=== PATIENT | female | born 1995 | race Caucasian/White ===

== ENCOUNTER 2017-09-07 09:51 | Emergency (ER) | payer MEDICAID, OTHER ==
[~2017-09-07] VITALS: Ht 165.1 cm; Wt 113.0 kg
[2017-09-07 09:54] VITALS: Ht 165.1 cm; Wt 113.0 kg
--- NOTE | 2017-09-07 10:18 | ERD ---
ER Documentation Chief Complaint Chief Complaint Complains of vomiting x 3 days HPI 22-year-old female, previously healthy, presents to the emergency department complaining of 3 days with a spinning sensation, associated with nausea and vomiting approximately 3 episodes per day, spinning sensation is worsened by sudden changes in position. Denies headaches, weakness, numbness, tingling. No ear pain, no history of ear problems. Recent upper respiratory infection 2 weeks ago. No treatment attempted at this time, no history of previous episodes. ROS A 12-point review of systems was performed and negative other than presented in the history of present illness. SYSTEMIC symptoms: no fever, chills, no night sweats, no weight loss EYE symptoms: No blurred vision, no eye discharge OTOLARYNGEAL symptoms: No hearing loss. No ear pain, no sore throat CARDIOVASCULAR symptoms: No chest pain or discomfort, no palpitations. PULMONARY symptoms: No dyspnea, no cough, no wheezing. GASTROINTESTINAL symptoms: No abdominal pain, no nausea, no vomiting, no diarrhea MUSCULOSKELETAL symptoms: No arthralgias, no muscle aches. NEUROLOGY symptoms: No confusion, no syncope, no numbness or tingling. SKIN: No rashes Medications Home Meds Active Scripts Lorazepam* (Ativan*) 0.5 Mg Tablet, 0.5 MG PO Q8 for dizziness, #10 TAB Prov:EDEN PICHARDO MD 09/07/17 Meclizine Hcl* (Antivert*) 12.5 Mg Tab, 12.5 MG PO Q6H Y for DIZZINESS, #20 TAB Prov:EDEN PICHARDO MD 09/07/17 Allergies Allergies: Coded Allergies: No Known Allergy (Unverified , 09/07/17) Physical Exam Vitals Vital Signs Date Time Temp Pulse Resp B/P Pulse Ox O2 Delivery O2 Flow Rate FiO2 09/07/17 09:54 98.5 70 20 127/74 98 Physical Exam Patient is in no acute distress, vital signs stable. Alert and fully oriented. EYES: PERRLA, EOMI, Sclera and conjunctiva appear normal. EARS: Canals clear, tympanic membranes WNL THROAT: Normal oropharynx. NECK: Supple, No lymphadenopathy. Full ROM without pain or tenderness. HEART: RRR, no rubs, murmurs, clicks or gallops. LUNGS: Clear to auscultation. ABDOMEN: Soft, non-tender without masses or hepatosplenomegaly. EXTREMITIES: No edema bilaterally. BACK: Full ROM, no deformity, normal back exam NEURO: Cranial nerves grossly intact, no motor or sensory deficit Procedures/MDM 22-year-old female, previously healthy presents complaining of 3 days with spinning sensation associated with nausea and vomiting. Vital signs stable, Physical exam unremarkable, neurovascular exam intact. Differential diagnosis include but not limited to: Mnire's disease, vestibular neuronitis, migraine, vertigo, side effects of the medications, dehydration. Low suspicion for meningitis, [employer] tumor, stroke. Physical examination and clinical presentation consistent most likely with benign positional vertigo. During the ED course the patient remained stable, no new complaints. Results and clinical impression discussed with patient who agrees with management. The patient is stable to be treated outpatient and will be discharged home with a Rx for meclizine and lorazepam, some side effects of prescribed medications (headache, rash, nausea, vomiting, diarrhea, drowsiness, habituation, bleeding, hypertension, interactions with other medications) were reviewed. The patient was instructed to follow up with the primary care provider in the next 48h. If symptoms persist, worsen or new symptoms develop, then patient should return to the ED immediately. Instructions explained and given directly by me to the patient in Occitan with acknowledgment and demonstrated understanding. Disclaimer: Inadvertent spelling and grammatical errors are likely due to EHR/ dictation software use and do not reflect on the overall quality of patient care. Also, please note that the electronic time recorded on this note does not necessarily reflect the actual time of the patient encounter. Departure Diagnosis: Primary Impression: Vertigo, benign positional Condition: Stable Additional Instructions: Call your primary care doctor TOMORROW for an appointment during the next 1-2 days. See the doctor sooner or return here if your condition worsens before your appointment time. Thank you very much for allowing us to participate in your care. Your health and safety is our top priority at [facility]. Have prescriptions filled and follow precisely the directions on the label. Follow-up with primary care provider during the next 4 days and bring all the information and medications prescribed. If illness has not improved in 2 days, then make an appointment with primary care provider. If the provider is unavailable, return to the Emergency Department immediately. EDEN PICHARDO MD Sep 07, 2017 10:18
[2017-09-07] MEDS ORDERED: LORA-441 PO (10:22)
[2017-09-07] MEDS ORDERED: MECL12.574 PO (10:22)
== END 2017-09-07 11:33 | disposition home or self-care (01) ==
LOC: FTE 09:51
DX: H81.10 Benign paroxysmal vertigo, unspecified ear (principal)
CPT/HCPCS: 99283